=== PATIENT | female | born 1965 | race Caucasian/White ===

== ENCOUNTER 2018-11-08 11:51 | Emergency (ER) | payer BC | END 2018-11-08 12:35 | disposition left against medical advice (07) | LOC: JP.ED 11:51 | DX: Z53.21 Procedure and treatment not carried out due to patient leaving prior to being seen by health care provider (principal) ==

== ENCOUNTER 2022-02-05 08:48 | Emergency (ER) | payer BC ==
[2022-02-05] MEDS ORDERED: Propofol 200 MG/20 ML SDV IVPUSH ONE (09:10)
[2022-02-05] MEDS ORDERED: Sodium Chloride 0.9% 1,000 ML IV SCH ×2 (09:15)
[2022-02-05 09:24] LABS: ESTIMATED GFR 65 mL/min (>60); TROPONIN I HIGH SENSITIVITY 4.5 pg/mL (<=60.3)
[2022-02-05] MEDS ORDERED: LORazepam 2 MG/ML SDV IVPUSH ONE (10:43)
[2022-02-05 11:36] VITALS: BP 122/68; PULSE 77
== END 2022-02-05 12:25 | disposition home or self-care (01) ==
LOC: JP.ED 08:48
DX: I48.91 Unspecified atrial fibrillation (principal); R42 Dizziness and giddiness; E66.9 Obesity, unspecified; Z68.37 Body mass index [BMI] 37.0-37.9, adult; Z20.822 Contact with and (suspected) exposure to COVID-19
CPT/HCPCS: 36415; 71045; 80053; 84145; 84484; 85025; 86140; 87635; 92960; 93005; 96361; 96374; 99285; J2060; J2704; J7030; U0002

== ENCOUNTER 2024-10-15 19:30 | Emergency (ER) | payer BC ==
[2024-10-15 20:17] VITALS: BP 121/75; PULSE 95
[2024-10-15] MEDS ORDERED: Sodium Chloride 0.9% 10 ML Syringe FLUSH PRN (20:39)
[2024-10-15 20:57] LABS: BASOPHILS PERCENT AUTO 0.2 % (0.1-1.3); EOSINOPHILS PERCENT AUTO 0.1 % (0.0-5.4); HEMATOCRIT 39.6 % (34.3-46.0); HEMOGLOBIN 13.1 g/dL (11.2-15.5); IMMATURE GRAN PERCENT AUTO 0.2 % (0.0-0.7); LYMPHOCYTES ABSOLUTE AUTO 0.32 K/uL (0.8-3.3); LYMPHOCYTES PERCENT AUTO 3.9 % (11.4-47.7); MEAN CORPUSCULAR HEMOGLOBIN 29.8 pg (31.6-35.5); MEAN CORPUSCULAR HGB CONC 33.1 g/dL (31.6-35.5); MEAN CORPUSCULAR VOLUME 90.2 fL (81.4-99.0); MONOCYTES ABSOLUTE AUTO 0.38 K/uL (0.20-0.90); MONOCYTES PERCENT AUTO 4.6 % (3.3-12.6); NEUTROPHILS ABSOLUTE AUTO 7.45 K/uL (1.0-7.6); PLATELET COUNT,PLT 163 K/uL (130-375); RED BLOOD CELL COUNT 4.39 M/uL (3.77-5.24); WHITE BLOOD CELL COUNT,WBC 8.2 K/uL (3.2-11.0)
[2024-10-15 20:59] LABS: BASOPHILS ABSOLUTE AUTO 0.02 K/uL (0.00-0.10); EOSINOPHILS ABSOLUTE AUTO 0.01 K/uL (0.00-0.40); IMMATURE GRAN ABSOLUTE AUTO 0.02 K/uL (0.00-0.23)
[2024-10-15] MEDS: Ondansetron 4 MG/2 ML SDV IVPUSH ONE (21:03)
[2024-10-15] MEDS: Sodium Chloride 0.9% 1,000 ML IV STA (21:06)
[2024-10-15 21:20] LABS: ALANINE AMINOTRANSFERASE,ALT 22 U/L (12-78); ALBUMIN 3.6 g/dL (3.4-5.0); ALKALINE PHOSPHATASE 113 U/L (46-116); ASPARTATE AMNIOTRANSFERASE,AST 11 U/L (15-37); BILIRUBIN TOTAL 1.2 mg/dL (0.2-1.0); BLOOD UREA NITROGEN,BUN 7 mg/dL (7-18); CARBON DIOXIDE,CO2 23 mmol/L (21-32); CHLORIDE,CL 104 mmol/L (100-108); CREATININE 0.9 mg/dL (0.6-1.0); ESTIMATED GFR 73 mL/min (>60); GLUCOSE RANDOM 120 mg/dL (74-106); POTASSIUM,K 3.5 mmol/L (3.6-5.2); PROTEIN TOTAL,TP 7.2 g/dL (6.4-8.2); SODIUM,NA 140 mmol/L (140-148); TROPONIN I HIGH SENSITIVITY 6.6 pg/mL (<=60.3)
[2024-10-15 21:21] LABS: ANION GAP 16.5 mmol/L (5.0-14.0)
[2024-10-15] MEDS: Sodium Chloride 0.9% 80 ML IV SCH (21:21)
[2024-10-15] MEDS: Iopamidol 612 MG/ML 100 ML Bottle IV SCH (21:21)
== END 2024-10-15 22:50 | disposition home or self-care (01) ==
LOC: JP.ED 19:30
DX: K52.9 Noninfective gastroenteritis and colitis, unspecified (principal); E78.00 Pure hypercholesterolemia, unspecified; Z79.899 Other long term (current) drug therapy
CPT/HCPCS: 36415; 74177; 80053; 83605; 83690; 84484; 85025; 87428; 96361; 96374; 99284; J2405; J7030; Q9967